=== PATIENT | female | born 1935 | race Caucasian/White ===

== ENCOUNTER 2022-11-14 11:51 | Inpatient (IN) | payer MEDICARE, BC ==
[~2022-11-14] VITALS: Ht 149.9 cm; Wt 54.4 kg
[2022-11-14] MEDS ORDERED: IV NORMAL SALINE 500 ML BAG IV ONE (12:00)
[2022-11-14 12:57] LABS: HEMATOCRIT 35.5 % (31.2-41.9); MEAN CORPUSCULAR VOLUME 92.1 fL (75.5-95.3); PLATELET COUNT (AUTO) 274 K/uL (179-408)
--- NOTE | 2022-11-14 12:58 | NUR ---
PT IS IN ROOM #1B. DR ADAMS EVALUATED THE PT.
[2022-11-14 13:18] LABS: CARBON DIOXIDE 27 mmol/L (21-32); CHLORIDE 106 mmol/L (98-107); CREATININE 0.8 mg/dL (0.6-1.3); GLUCOSE 114 mg/dL (74-106); POTASSIUM 3.6 mmol/L (3.5-5.1); UREA NITROGEN, BLOOD 13 mg/dL (7-18)
[2022-11-14 13:24] LABS: ALANINE AMINOTRANSFERASE 12 U/L (14-59); ALKALINE PHOSPHATASE 118 U/L (50-136); ASPARTATE AMINOTRANSFERASE < 5 U/L (15-37); BILIRUBIN,DIRECT 0.2 mg/dL (0.0-0.2); BILIRUBIN,TOTAL 0.3 mg/dL (0.2-1.0); TOTAL PROTEIN, SERUM 6.9 g/dL (6.4-8.2)
[2022-11-14] MEDS ORDERED: [UNRECOGNIZED DRUG - OTHER] (13:45)
[2022-11-14] MEDS ORDERED: CIPRO PO (13:45)
[2022-11-14] MEDS ORDERED: ZANUBRUTINIB (13:45)
--- NOTE | 2022-11-14 14:06 | NUR ---
PT IS REDTING IN BED COMFORTABLY. PT's DOUGHTER AT THE BEDSIDE. CONTINUE TO MONITOR THE PT.
[2022-11-14] MEDS ORDERED: ACETAMINOPHEN 325 MG TABLET PO PRN (15:15)
[2022-11-14] MEDS ORDERED: HYDROCODONE/APAP 5-325MG TABLET PO PRN (15:15)
[2022-11-14] MEDS ORDERED: ONDANSETRON 4 MG/2 ML VIAL IV PRN (15:15)
--- NOTE | 2022-11-14 18:05 | NUR ---
Code stroke activated by .
--- NOTE | 2022-11-14 18:07 | NUR ---
Pt to CT via ramone with vascular tech and Jeancarlos MCDONOUGH with ACLS guidelines in place.
--- NOTE | 2022-11-14 18:10 | NUR ---
Tele Request placed, connect ID: [id number].
[2022-11-14 18:13] LABS: THYROID STIMULATING HORMONE 0.821 mIU/mL (0.358-3.740)
[2022-11-14] MEDS ORDERED: IOHEXOL 350 100 ML INFUS..BTL ONE (18:22)
[2022-11-14] MEDS ORDERED: SWABABLE VALVE TRANSFER SET EA MC ONE (18:22)
[2022-11-14] MEDS ORDERED: IV NORMAL SALINE 250 ML IV ONE (18:22)
--- NOTE | 2022-11-14 18:37 | NUR ---
PT IS BACK FROM CT SCAN. PT IS UNDER EVALUATION OF TELESTROKE NEUROLOGIST CHARLA ADAMS AT THE BEDSIDE.
[2022-11-14] MEDS ORDERED: IV NS 1000 ML 1,000 ML IV ONE (21:30)
--- NOTE | 2022-11-14 21:30 | NUR ---
Admitted patient in tele floor under the care of Silvino Hinson SIGNING TEACHER, patient alert oriented, no sob no chest pain, skin intact, uses bedpan for bladder eliminations, oriented to call lights, and remote control. Patient sinus rhythm on tele cont to monitor.
[2022-11-14] MEDS: ATORVASTATIN 20 MG TABLET PO SCH (22:19)
[2022-11-14 22:30] VITALS: BP 155/82
--- NOTE | 2022-11-15 02:00 | NUR ---
Patient complain of gen body pain and headaches 8/10 given Narco as ordered, with effective results, uses bedpan for bladder eliminations, BP stable. cont to monitor.
[2022-11-15 04:00] VITALS: BP 119/69
--- NOTE | 2022-11-15 06:04 | NUR ---
Patient asleep, but arousable, no sob no chest pain, no further complain of pain, BP stable, sinus rhythm on tele cont to monitor.
[2022-11-15 07:30] LABS: HEMATOCRIT 35.5 % (31.2-41.9); MEAN CORPUSCULAR HEMOGLOBIN 30.7 uug (24.7-32.8); MEAN CORPUSCULAR VOLUME 92.2 fL (75.5-95.3); PLATELET COUNT (AUTO) 248 K/uL (179-408)
[2022-11-15 07:52] LABS: BILIRUBIN,TOTAL 0.4 mg/dL (0.2-1.0); CREATININE 0.6 mg/dL (0.6-1.3); MAGNESIUM 2.1 mg/dL (1.8-2.4); PHOSPHOROUS 3.1 mg/dL (2.5-4.9); POTASSIUM 3.3 mmol/L (3.5-5.1); TOTAL PROTEIN, SERUM 6.6 g/dL (6.4-8.2)
[2022-11-15 07:58] LABS: THYROID STIMULATING HORMONE 1.359 mIU/mL (0.358-3.740)
[2022-11-15] MEDS ORDERED: ZANU80CA PO (08:00)
[2022-11-15] MEDS ORDERED: ATOR10TA PO (08:00)
[2022-11-15] MEDS ORDERED: VIT1CAPS9 PO (08:00)
[2022-11-15] MEDS ORDERED: ACYC200C31 PO (08:01)
[2022-11-15] MEDS: PANTOPRAZOLE SODIUM 40 MG VIAL IV SCH (08:49)
[2022-11-15] MEDS: ASPIRIN 81 MG TAB.CHEW PO SCH (08:49)
[2022-11-15] MEDS ORDERED: levETIRAcetam IV 1,000 MG in IV DEXTROSE 5% 100 ML IV ONE (08:58)
[2022-11-15] MEDS ORDERED: POTASSIUM CHLORIDE 20 MEQ TAB.PRT.SR PO ONE ×2 (09:15→09:45)
[2022-11-15 11:10] VITALS: BP 147/79
[2022-11-15 12:28] LABS: *BILIRUBIN,URIN NEGATIVE (NEGATIVE); *CLARITY,URINE CLEAR (CLEAR); *COLOR,URINE YELLOW (YELLOW); *KETONES,URINE 1+ (NEGATIVE); *UROBILINOGEN,URINE 0.2 E.U./dl (NORMAL); LEUKOCYTE ESTERASE ,URINE TRACE (NEGATIVE); NITRITE, URINE NEGATIVE (NEGATIVE); UGLUCOSE NEGATIVE (NEGATIVE)
[2022-11-15 15:50] LABS: *BLOOD, URINE TRACE (NEGATIVE)
--- NOTE | 2022-11-15 15:52 | NUR ---
0730-REC'D IN BED, AWAKE, ABLE TO ANSWER SIMPLE QUESTIONS ASKED, DENIES PAIN. NO RESPIRATORY DISTRESS, ON ROOM AIR AND WELL GABBY. ORAL FLUIDS ENCOURAGED TOLERATED AND TAKEN WELL. SAFETY MEASURES AND CALL LIGHT AT REACH. 0900-SCHEDULED/DUE MEDICATIONS ADMINISTERED WITH NO ASE NOTED. NO SWALLOWING PROBLEMS OBSERVED, PATIENT SWALLOW PILLS/WATER WELL. 1430-PATIENT TAKEN TO [facility] FOR AN MRI BRAIN WWO CONTRAST. PATIENT LEFT IN GOOD STABLE CONDITIONS. VS MK=284/69, P78, OXYGEN 97% R/A, R16, T98.5, PATIENT DENIES PAIN. DTR AT BEDSIDE. 1535-PATIENT CAME BACK FROM [facility], TRANSFERRED TO BED FROM [facility] SAFELY WITH [employer] ASSIST OF ACCOUNTS PAYABLE SPECIALIST (TWO PERSON) TOLERATED WELL, NO C/O HEADACHE,DIZZINESS, PAIN.
[2022-11-15 16:00] VITALS: BP 130/62
--- NOTE | 2022-11-15 16:01 | NUR ---
UA RESULTS NOT YET AVAILABLE, PER IN HOUSE OVERHAULER, RESULTS WERE TRANSFERRED TO [facility] DT A LOT OF WBCs.
--- NOTE | 2022-11-15 16:59 | NUR ---
4:00PM-UPON APPLYING TELE-MONITOR TO PATIENT, OVERHEARD A JESSENIA MCCORMICK (DAUGHTER & POA FOR HEALTHCARE) INSTRUCTING THE PATIENT, THAT SHE WAS GOING TO RECORD HER ON THE PHONE AND TO JOCELINE HER A VERBAL AUTHORITY DURING THE RECORDING TO ACCESS SOME MONEY, KOFI PLEADED TO PATIENT "PLEASE, MOMY, IN KNOW MY SISTER HAS AUTHORITY BUT I WOULD LIKE TO BE ABLE TO ACCESS, $125.00 DOLLARS WEEKLY WELL" KOFI ADDED, " IT IS FOR YOUR OWN EXPENSES MOMY"
[2022-11-15] MEDS ORDERED: DEXAMETHASONE SOD PHOSPHATE 10 MG INJ IV ONE (17:30)
[2022-11-15] MEDS: CEFTRIAXONE 1 G in IV DEXTROSE 5% 50 ML IV SCH (17:58)
[2022-11-15] MEDS: BRUKINSA 80 MG PO SCH (17:59)
[2022-11-15 19:58] VITALS: BP 141/77
[2022-11-15 20:11] LABS: BACTERIA,URINE RARE /HPF (NONE SEEN)
[2022-11-15 20:12] LABS: SQUAMOUS EPITHELIAL CELL,UR FEW /HPF (NONE SEEN)
[2022-11-15] MEDS: DEXAMETHASONE SOD PHOSPHATE 4 MG INJ IV SCH (21:23)
[2022-11-15] MEDS: ATORVASTATIN 20 MG TABLET PO SCH (21:23)
[2022-11-15] MEDS: levETIRAcetam IV 500 MG in IV DEXTROSE 5% 100 ML IV SCH (21:25)
[2022-11-16] VITALS: BP 138/79
--- NOTE | 2022-11-16 04:21 | NUR ---
pt ambulated to bathroom; pt blurted out on the way back to bed "NOT TO TREAT ME LIKE AN IDIOT"; reiterated to patient that she recently fell and thather safety is a concern.
[2022-11-16] MEDS: BRUKINSA 80 MG PO SCH ×2 (04:48→16:29)
[2022-11-16 04:55] VITALS: BP 132/66
[2022-11-16 07:27] LABS: HEMATOCRIT 34.4 % (31.2-41.9); MEAN CORPUSCULAR HEMOGLOBIN 30.8 uug (24.7-32.8); MEAN CORPUSCULAR VOLUME 91.4 fL (75.5-95.3); PLATELET COUNT (AUTO) 222 K/uL (179-408)
[2022-11-16 07:38] LABS: CREATININE 0.6 mg/dL (0.6-1.3); MAGNESIUM 2.2 mg/dL (1.8-2.4); POTASSIUM 3.8 mmol/L (3.5-5.1)
--- NOTE | 2022-11-16 07:45 | NUR ---
RECEIVED PATIENT IN BED AWAKE ALERT AND ORIENTED X3, ABLE TO COMMUNICATE NEEDS WELL, DAUGHTER AT BEDSIDE VERY INVOLVE WITH CARE AND DISCHARGE ISSUES. DR HAIRSTON AND HOSPITALIST SPOKE WITH DAUGHTER/DPA. SR ON MONITOR
[2022-11-16] MEDS: PANTOPRAZOLE SODIUM 40 MG VIAL IV SCH (08:34)
[2022-11-16] MEDS: DEXAMETHASONE SOD PHOSPHATE 4 MG INJ IV SCH ×2 (08:34→21:29)
[2022-11-16] MEDS: ASPIRIN 81 MG TAB.CHEW PO SCH (08:34)
[2022-11-16] MEDS: levETIRAcetam IV 500 MG in IV DEXTROSE 5% 100 ML IV SCH ×2 (08:36→21:29)
[2022-11-16] MEDS ORDERED: IV NORMAL SALINE 250 ML IV ONE (10:01)
[2022-11-16] MEDS ORDERED: IOHEXOL 300MG/ML 100 ML INFUS..BTL ONE (10:01)
[2022-11-16] MEDS ORDERED: SWABABLE VALVE TRANSFER SET EA MC ONE (10:01)
--- NOTE | 2022-11-16 10:30 | NUR ---
CT CHEST, ABDOMEN, PELVIS WITH CONTRAST DONE AWAITING FOR RESULTS
[2022-11-16 12:00] VITALS: BP 101/53
--- NOTE | 2022-11-16 12:54 | NUR ---
NO ACUTE CHANGE FROM MORNING ASSESSMENT, DC PLAN FOR ACUTE TO ACUTE FOR HIGHER LEVEL OF CARE IN PROGRESS. SEE CM NOTES
[2022-11-16] MEDS: ACYCLOVIR 200 MG CAPSULE PO SCH ×2 (13:28→21:29)
[2022-11-16] MEDS: CEFTRIAXONE 1 G in IV DEXTROSE 5% 50 ML IV SCH (16:29)
[2022-11-16 16:31] VITALS: BP 106/52
[2022-11-16] MEDS ORDERED: ZANUBRUTINIB PO SCH (17:00)
--- NOTE | 2022-11-16 18:25 | NUR ---
RESULTS OF CT CHEST, ABDOMEN, PELVIS WITH AND WITHOUT CONTRAST IN AND NOTED BY HOSPITALIST Silvino URENA, HOSPITALIST THEN CALLED NEUROLOGIST AND DIVERSIFIED CROPS FARMWORKER DISCUSSED THE BEST TX. SEE NOTES. NOTE: HOSPITALIST ALSO DISCUSSED PLAN OF CARE FOR NOW AND FURTHER SAID NO ANTICOAGULANT.
[2022-11-16 20:00] VITALS: BP 119/71
[2022-11-16] MEDS: ATORVASTATIN 20 MG TABLET PO SCH (21:29)
[2022-11-17] VITALS: BP 120/70
[2022-11-17 04:00] VITALS: BP 126/70
[2022-11-17 07:06] LABS: CANCER AG, 125 11.5 U/mL (0.0-38.1); CANCER ANTIGEN 15-3 10.2 U/mL (0.0-25.0)
--- NOTE | 2022-11-17 07:30 | NUR ---
report given to addis mary
--- NOTE | 2022-11-17 08:00 | NUR ---
RECEIVED PATIENT IN BED AWAKE ALERT AND ORIENTED X3, DENIES HEADACHE, N/V, DIZZINESS, NO CHEST PAIN OR SOB. CONTINUE TELE STATUS. SR ON MONITOR
[2022-11-17] MEDS ORDERED: Medication Not On Formulary EA (Vit A/Vit C/Vit E/Zinc/Copper (Preservision Areds Softge PO SCH (09:00)
[2022-11-17] MEDS ORDERED: BETA CAROTENE/VIT C & E/MIN TABLET PO SCH (09:00)
[2022-11-17] MEDS ORDERED: BRUKINSA 80 MG PO SCH (09:00)
[2022-11-17] MEDS: ACYCLOVIR 200 MG CAPSULE PO SCH (09:35)
[2022-11-17] MEDS: levETIRAcetam IV 500 MG in IV DEXTROSE 5% 100 ML IV SCH (09:35)
[2022-11-17] MEDS: PANTOPRAZOLE SODIUM 40 MG VIAL IV SCH (09:37)
[2022-11-17] MEDS: DEXAMETHASONE SOD PHOSPHATE 4 MG INJ IV SCH (09:37)
--- NOTE | 2022-11-17 10:00 | NUR ---
VERIFIED WITH HOSPITALIST ABOUT PROCEEDING THERAPY ORDER AND SAID TO CONTINUE ORDERED. SEEN BY PHYSICAL THERAPIST FOR FOLLOW-UP, SEE NOTES.
--- NOTE | 2022-11-17 11:26 | NUR ---
SEEN BY DR GALLO FOR CONSULT SEE NOTES
[2022-11-17 11:43] VITALS: BP 113/61
[2022-11-17] MEDS ORDERED: GADOTERATE MEGLUMINE 5 MMOL/10 ML VIAL IV ONE (11:48)
--- NOTE | 2022-11-17 15:34 | NUR ---
DISCHARGED TO [facility], REPORT GIVEN TO SAPPHIRE AT [facility] GOING TO RM [id number]. DISCHARGE AND FOLLOW-UP INSTRUCTION GIVEN TO PATIENT AND FAMILY.
[2022-11-17] MEDS ORDERED: levETIRAcetam 500 MG TABLET PO SCH (21:00)
[2022-11-18] MEDS ORDERED: PANTOPRAZOLE SODIUM 40 MG TABLET.DR PO SCH (07:00)
== END 2022-11-17 15:30 | disposition short-term general hospital (02) | DRG 54 ==
LOC: ER 11:51 → MEDSURG3 20:33 → TELE3 21:30
PROVIDERS: ADMIT Nurse Practitioner Acute Care; ATTEND Nurse Practitioner Acute Care
DX: C79.31 Secondary malignant neoplasm of brain (principal); G93.6 Cerebral edema; I26.99 Other pulmonary embolism without acute cor pulmonale; G45.9 Transient cerebral ischemic attack, unspecified; N39.0 Urinary tract infection, site not specified; I10 Essential (primary) hypertension; Z87.440 Personal history of urinary (tract) infections; Z86.711 Personal history of pulmonary embolism; Z88.0 Allergy status to penicillin; R53.1 Weakness; E78.5 Hyperlipidemia, unspecified; R91.8 Other nonspecific abnormal finding of lung field; Z85.72 Personal history of non-Hodgkin lymphomas; Z92.21 Personal history of antineoplastic chemotherapy; Z91.81 History of falling; R29.700 NIHSS score 0
CPT/HCPCS: 36415; 70450; 70496; 70553; 71045; 71260; 72125; 82378; 83605; 83615; 83735; 84100; 84443; 84484; 85025; 85730; 86300; 86301; 87040; 93005; 95819; A4663; A9575; C9113; G0378; J0696; J1100; J1953; J7040; Q9967